=== PATIENT | male | born 1975 | race Caucasian/White ===

== ENCOUNTER 2025-04-02 13:25 | Outpatient (CLI) | payer BC, SELFPAY | END 2025-04-02 13:26 | disposition home or self-care (01) | LOC: INJ CL 13:30 | PROVIDERS: PCP Student in an Organized Health Care Education/Training Program; Visit Provider Family Medicine | DX: M54.16 Radiculopathy, lumbar region (principal); M51.26 Other intervertebral disc displacement, lumbar region | CPT/HCPCS: 64483; Q9966 ==